=== PATIENT | male | born 1995 | race Caucasian/White ===

== ENCOUNTER → 2017-02-27 | Outpatient (CLI) | payer OTHER ==
[~2017-02-27] MED LIST: METHACHOLINE KIT (J7674) INH ONE
--- NOTE | 2017-02-27 15:39 | PFTRPT ---
Tech: [place] CORT[employer] Age: 21 Sex: Male Race: Height: 66.50 Inches Weight: 175.00 Lbs BSA: 1.90 Diagnosis: R06.00 R05 PULMONARY FUNCTION REPORT ORDERING PROVIDER: Evelio Sheehan DATE OF SERVICE: 02/27/17 SPIROMETRY: Excellent technical quality. The forced vital capacity is normal. The FEV1 is in proportion. The obstructive index is, therefore, normal. FLOW VOLUME LOOP: The expiratory limb of the flow volume loop is reasonably normal. LUNG VOLUMES: The total lung capacity is normal. The residual volume is in proportion. DIFFUSION CAPACITY: The diffusion capacity is normal. HEMOGLOBIN: No hemoglobin is available for correction. AIRWAY MECHANICS: Airways resistance is only minimal elevated. IMPRESSION: Probably normal study. Please correlate clinically. MTDD
--- NOTE | 2017-02-27 16:18 | PFTRPT ---
Tech: [place] CORT[employer] RRT Age: 21 Sex: Male Race: Height: 66.50 Inches Weight: 175.00 Lbs BSA: 1.90 Diagnosis: R06.00 R05 METHACHOLINE CHALLENGE REPORT: ORDERING PROVIDER: Evelio Sheehan DATE OF SERVICE: 02/27/17 INTERPRETATION: The study was of excellent technical quality. Under protocol, methacholine was administered. At a dose of 2.5 mg (13.875 CDUs), a 34% decline in the FEV1 was noted. The PC20 of 0.28 is significant. Flow rates returned to near baseline post bronchodilator administration. IMPRESSION: Positive methacholine challenge study. MTDD
== END ==
LOC: M CARPUL 15:00
PROVIDERS: ATTEND Internal Medicine
DX: R06.00 Dyspnea, unspecified (principal)